=== PATIENT | male | born 1990 ===

== ENCOUNTER 2017-09-25 10:01 | Emergency (ER) | payer BC ==
--- NOTE | 2017-09-25 11:15 | CT ---
CT BRAIN NONCONTRAST: HISTORY: 27-year-old male with headache. FINDINGS: The ventricles are normal in size and configuration. There is no midline shift or any other mass eff ect. There is no evidence of acute intracranial hemorrhage, large cortical infarct, or extraaxial fl uid collection. The wesley matter /white matter differentiation is maintained. The calvarium is intac t. The tympanomastoid cavities, and the upper portions of the paranasal sinuses included in these im ages, are grossly clear. IMPRESSION: Normal. jn [] POS: [facility]
[2017-09-25 11:23] LABS: Hemoglobin 12.2 g/dL (14.0-18.0); Mean Corpuscular HGB CONC 34.2 g/dL (32.0-36.0); Mean Corpuscular Hemoglobin 30.3 pg (27.0-31.0); Mean Corpuscular Volume 88.6 fl (80.0-94.0); Mean Platelet Volume 7.4 fL (7.4-10.4); Platelet Count 213 thou/uL (130-400); RBC Distribution Width 11.5 % (11.5-14.5); Red Blood Cell (RBC) Count 4.03 mill/uL (4.70-6.10); White Blood Cell (WBC) Count 3.1 thou/uL (4.8-10.8)
--- NOTE | 2017-09-25 11:25 | CT ---
CT ANGIOGRAM OF NECK WITH CONTRAST: Date: 09/25/17 HISTORY: 27-year-old male with right neck pain and weakness. Rule out carotid dissection. TECHNIQUE: Following the IV injection of 100 mL of Isovue-370, arterial bolus chasing technique scan was perform ed from aortopulmonic window to the mid orbit level. Coronal and sagittal 3D MIP reconstructions. FINDINGS: Bovine origin of left common carotid artery. The aortic arch, brachiocephalic, right subclavian, righ t common carotid, right internal carotid, right vertebral, left common carotid, left internal carotid , left vertebral, and proximal aspect of left subclavian, arteries, are normal in caliber, with no ev idence of stenosis or dissection. There is no atherosclerotic plaque. Right vertebral artery is sligh tly dominant. The visualized lower 2/3 of the carotid siphons appear normal. Cervical spine is normal . Lung apices are grossly clear. Trachea and mainstem bronchi are patent and clear. The larynx is nor mal. The bilateral tympanomastoid cavities and the bilateral maxillary sinuses are clear. The larynx and thyroid gland are normal. No cervical lymphadenopathy, abscess, or mass. The pharyngeal mucosal, parotid, carotid, parapharyngeal, perivertebral, retropharyngeal, posterior cervical, and licensed pesticide applicator spaces are normal. IMPRESSION: Normal. POS: [facility]
[2017-09-25 11:36] LABS: ALT (SGPT) 10 U/L (8-55); AST (SGOT) 11 U/L (5-34); Albumin 4.1 g/dL (3.5-5.0); Alkaline Phosphatase 70 U/L (40-150); Anion Gap 9 mmol/L (10-20); BUN (Urea Nitrogen) 11 mg/dL (8.9-20.6); Bilirubin, Total 0.6 mg/dL (0.2-1.2); Calc. Creatinine Clearance 0 mL/min (70-130); Carbon Dioxide 26 mmol/L (22-29); Chloride 104 mmol/L (98-107); Estimated GFR-MDRD Greater than 90; Glucose 93 mg/dL (70-105); Potassium 3.7 mmol/L (3.5-5.1); Protein, Total 7.1 g/dL (6.0-8.3); Sodium 135 mmol/L (136-145)
[2017-09-25 11:42] LABS: Band 6 % (5-11); Eosinophils 1 % (0-10); Lymphocytes 38 % (21-51); MDiff Complete? YES; Monocytes 4 % (0-10); Neutrophil 51 % (42-75); RBC Morphology Normal
[2017-09-25] MEDS ORDERED: ISOVUE-370 76%-LOCM 1 ML ONE (15:12)
== END 2017-09-25 12:40 | disposition home or self-care (01) ==
LOC: ERS 10:01
DX: R20.2 Paresthesia of skin (principal); R20.0 Anesthesia of skin
CPT/HCPCS: 36415; 70450; 70498; 80053; 83735; 85025